=== PATIENT | female | born 1955 | race Caucasian/White ===

== ENCOUNTER 2018-05-08 09:03 | Emergency (ER) | payer OTHER ==
[2018-05-08 09:18] VITALS: BP 152/75; PULSE 64; TEMP 98.6; BMI 37.6
[2018-05-08] MEDS ORDERED: KETOROLAC TROMETHAMINE 60 MG/2 ML VIAL IM ONE (09:30)
[2018-05-08] MEDS ORDERED: KETOROLAC TROMETHAMINE 60 MG/2 ML VIAL ONE (09:39)
--- NOTE | 2018-05-08 09:40 | PDOC ---
History of Present Illness - General Chief Complaint: Pain Stated Complaint: RT SHOULDER PAIN Time Seen by Provider: 05/08/18 09:18 History Source: Patient Exam Limitations: No Limitations - History of Present Illness Initial Comments: 05/08/18 09:43 62-year-old female presents to ED with complaints of right neck and right shoulder pain for the past 3 months worsened with movement unrelieved with Motrin 400 mg. Patient denies sensory changes distally weakness, or recent injury. Patient denies skin discoloration or change in temperature. Severity: mild Associated Symptoms: reports: denies symptoms Past History - Travel Traveled outside of the country in the last 30 days: No - Past Medical History Allergies/Adverse Reactions: Allergies Allergy/AdvReac Type Severity Reaction Status Date / Time No Known Allergies Allergy Verified 05/08/18 09:14 COPD: No - Suicide/Smoking/Psychosocial Hx Smoking History: Never smoked Patient Lives Alone: No Lives with/in: spouse Review of Systems - Review of Systems Able to Perform ROS?: No Constitutional: No: Symptoms Reported HEENTM: No: Symptoms Reported Respiratory: No: Symptoms reported Musculoskeletal: Yes: Joint Pain (rt shoulder) Integumentary: No: Symptoms Reported Neurological: No: Symptoms reported Endocrine: No: Symptoms Reported Hematologic/Lymphatic: No: Symptoms Reported *Physical Exam - Vital Signs Last Vital Signs Temp Pulse Resp BP Pulse Ox 98.6 F 64 16 152/75 96 05/08/18 09:14 05/08/18 09:14 05/08/18 09:14 05/08/18 09:14 05/08/18 09:14 - Physical Exam General Appearance: Yes: Nourished, Appropriately Dressed. No: Apparent Distress Neck: positive: Supple, Tender lateral (right trapezius). negative: Decreased range of motion Respiratory/Chest: positive: Lungs Clear, Normal Breath Sounds. negative: Chest Tender, Respiratory Distress, Accessory Muscle Use Cardiovascular: positive: Regular Rhythm, Regular Rate. negative: Murmur Gastrointestinal/Abdominal: positive: Soft. negative: Tenderness Musculoskeletal: negative: Normal Inspection Extremity: positive: Normal Capillary Refill Integumentary: positive: Normal Color, Warm, Moist Neurologic: positive: Motor Strength 5/5 (rt shoulder Lateral raise and shoulder shrug) ED Treatment Course - RADIOLOGY Radiology Studies Ordered: Category Date Time Status SPINE-CERVICAL [RAD] Stat Radiology 05/08/18 09:30 Ordered Medical Decision Making - Medical Decision Making 05/08/18 09:44 General complaint of right neck and right shoulder pain for the past few months worsened with movement. Patient exam had reproducible right trapezius tenderness with no midline tenderness. Patient was ordered for cervical x-ray to rule out herniation and mass. Patient also ordered for Toradol for inflammation and discomfort. Patient will also be given a referral to Dr. Kent. 05/08/18 11:57 Cervical x-ray cleared for any acute findings including dislocation subluxation or deformities. Patient stating feeling better after receiving Toradol. Patient be discharged home with recommendations to follow-up with orthopedist if symptoms continue. *DC/Admit/Observation/Transfer Diagnosis at time of Disposition: Neck discomfort - Discharge Dispostion Disposition: HOME Condition at time of disposition: Improved - Referrals Referrals: Rad Kent MD [Staff Physician] - - Patient Instructions Printed Discharge Instructions: DI for Cervical Radiculopathy Additional Instructions: Please follow up with referred orthopedist and take Motrin or Tylenol for discomfort. Print Language: DIVEHI - Post Discharge Activity
== END 2018-05-08 12:02 | disposition home or self-care (01) ==
LOC: JERFT 09:03
PROC: 3E0233Z Introduction of Anti-inflammatory into Muscle, Percutaneous Approach (ICD-10-PCS; principal; 2018-05-08)
DX: M54.2 Cervicalgia (principal)
CPT/HCPCS: 72050-TC-FY; 99281-25